=== PATIENT | female | born 1995 | race Caucasian/White ===

== ENCOUNTER 2021-07-18 02:16 | Inpatient (IN) | payer OTHER ==
[~2021-07-18] VITALS: Ht 172.7 cm; Wt 81.6 kg
[2021-07-18] MEDS ORDERED: PRENATAL CAPLE1 EAC1 PO (10:32)
[2021-07-20] MEDS ORDERED: NAPR500T14 PO (12:28)
== END 2021-07-20 12:35 | DRG 807 ==
LOC: EDLOC 02:16 → LDR 02:16 → OB/GYN 02:16
PROVIDERS: ADMIT Obstetrics & Gynecology; ATTEND Obstetrics & Gynecology
PROC: 10E0XZZ Delivery of Products of Conception, External Approach (ICD-10-PCS; principal; 2021-07-18)
PROC: 0KQM0ZZ Repair Perineum Muscle, Open Approach (ICD-10-PCS; 2021-07-18)
PROC: 4A1HXCZ Monitoring of Products of Conception, Cardiac Rate, External Approach (ICD-10-PCS; 2021-07-18)
DX: O70.1 Second degree perineal laceration during delivery (principal); Z37.0 Single live birth; Z3A.41 41 weeks gestation of pregnancy; Z20.822 Contact with and (suspected) exposure to COVID-19